=== PATIENT | female | born 1980 | race Caucasian/White ===

== ENCOUNTER 2017-05-15 11:09 | Emergency (ER) | payer BC ==
[2017-05-15 11:17] VITALS: BP 104/70
--- NOTE | 2017-05-15 12:58 | UC ---
Abdominal Pain Female HPI - HPI Summary HPI Summary: right side, lower abdomen and supra pubic pain, no nausea or vomiting no fever , similar past issue with ovarian cyst - History of Current Complaint Chief Complaint: UCAbdominalPain Stated Complaint: PAIN ON SIDE Time Seen by Provider: 05/15/17 12:52 Hx Obtained From: Patient Hx Last Menstrual Period: 04/23/17 ?: No Onset/Duration: Gradual Onset, Lasting Days - 1, Still Present Timing: Constant Severity Initially: Moderate Severity Currently: Moderate Location: Discrete At: RLQ, Suprapubic, Other - right flank Radiates: No Character: Cramping Aggravating Factor(s): Nothing Alleviating Factor(s): Nothing Associated Signs and Symptoms: Positive: Negative Allergies/Adverse Reactions: Allergies Allergy/AdvReac Type Severity Reaction Status Date / Time Penicillins Allergy Severe Hives Verified 09/13/16 07:26 Aspirin Allergy Anaphylatic Verified 09/13/16 07:26 Shock Sulfamethoxazole Allergy temp Verified 05/15/17 11:11 w/Trimethoprim [From Bactrim] PMH/Surg Hx/FS Hx/Imm Hx Previously Healthy: Yes Other History Of: Negative For: Anticoagulant Therapy - Surgical History Surgical History: Yes Surgery Procedure, Year, and Place: TUBAL 2005,EYE MUSCLE AT AGE 3 - Family History Known Family History: Positive: None Family History: no cardiovascular issues reported in family lineage - Social History Occupation: Employed Full-time Lives: With Family Alcohol Use: None Substance Use Type: None Smoking Status (MU): Current Every Day Smoker Type: Cigarettes Amount Used/How Often: 1/2 pack day Review of Systems Constitutional: Negative Skin: Negative Eyes: Negative ENT: Negative Respiratory: Negative Cardiovascular: Negative Gastrointestinal: Abdominal Pain Genitourinary: Negative Motor: Negative Neurovascular: Negative Musculoskeletal: Negative Neurological: Negative Psychological: Negative All Other Systems Reviewed And Are Negative: Yes Physical Exam Triage Information Reviewed: Yes Appearance: Well-Appearing, No Pain Distress, Thin Vital Signs: Initial Vital Signs Temp 98 F 05/15/17 11:12 Pulse 77 05/15/17 11:12 Resp 16 05/15/17 11:12 BP 104/70 05/15/17 11:12 Pulse Ox 99 05/15/17 11:12 Vital Signs Reviewed: Yes Eye Exam: Normal Eyes: Positive: Conjunctiva Clear ENT Exam: Normal ENT: Positive: Normal ENT inspection, Hearing grossly normal, Pharynx normal, TMs normal. Negative: Nasal congestion, Nasal drainage, Tonsillar swelling, Tonsillar exudate, Trismus, Muffled/hoarse voice Neck exam: Normal Neck: Positive: Supple, Nontender, No Lymphadenopathy Respiratory Exam: Normal Respiratory: Positive: Chest non-tender, Lungs clear, Normal breath sounds, No respiratory distress Cardiovascular Exam: Normal Cardiovascular: Positive: RRR, No Murmur, Pulses Normal, Brisk Capillary Refill Abdomen Description: Positive: Soft, Other: - lower abd disusly tender. Negative: CVA Tenderness (L), Distended, Guarding, Hepatomegaly, McBurney's Point Tenderness Bowel Sounds: Positive: Present Musculoskeletal Exam: Normal Musculoskeletal: Positive: Strength Intact, ROM Intact Neurological Exam: Normal Neurological: Positive: Alert, Muscle Tone Normal Psychological Exam: Normal Skin Exam: Normal UC Physical Exam Vital Signs On Initial Exam: Initial Vitals Temp Pulse Resp BP Pulse Ox 98 F 77 16 104/70 99 05/15/17 11:12 05/15/17 11:12 05/15/17 11:12 05/15/17 11:12 05/15/17 11:12 - Genitalia Exam Female Genitourinary: Normal External Exam, Vagina without Blood/Discharge, Left Ovary Tender, Right Ovary Tender, Other - cervical motion tenderness Diagnostics - Laboratory Diagnostic Studies Completed/Ordered: ua wnl except +2 Ketones - Radiology No standard instances Xray Interpretation: Positive (See Comments) - diffuse discomfort-?PID Re-Evaluation - Re-Evaluation First Eval Change: Unchanged - hungry drinking without nausea Abd Pain Female Course/Dx - Course Course Of Treatment: Doxy and flagyl, close follow up with pcp and to ed for additional or unresolving pain or change in sx - Differential Dx/Diagnosis Differential Diagnosis: Appendicitis, Constipation, Diverticulitis, Ovarian Cyst , Pelvic Inflammatory Disease, Renal Colic, Urinary Tract Infection Provider Diagnoses: Abd pain ?PID Discharge - Discharge Plan Condition: Stable Disposition: HOME Prescriptions: DOXYcycline CAP(*) [DOXYcycline 100MG CAP(*)] 100 mg PO BID #28 cap Metronidazole [Flagyl 500 MG TAB] 500 mg PO BID #28 tab Patient Education Materials: Pelvic Inflammatory Disease (ED), Acute Abdominal Pain (ED) Referrals: Jake Luis MD [Primary Care Provider] - 3 Days
--- NOTE | 2017-05-15 14:39 | RAD ---
Indication: Right lower quadrant pain. Real-time sonography of the pelvis was performed utilizing endovaginal technique. The uterus measures 8.8 x 4.3 x 5.0 cm. Endometrial echo measures 9.4 mm. Right ovary measures 3.2 x 2.4 x 2.4 cm. Left ovary measures 2.0 x 1.5 x 1.5 cm. No adnexal masses are noted. Patient experienced pain during scanning especially of the cervix. IMPRESSION: No adnexal masses are noted. The patient experienced cervical pain upon endovaginal scanning.
--- NOTE | 2017-05-18 19:55 | ED ---
Progress - Progress Note Progress Note: CALL PATIENT. NEGATIVE FOR GARDNERELLA AND LANNY. NEGATIVE G/C. FINISH ABX. Re-Evaluation - Re-Evaluation First Eval Change: Unchanged - hungry drinking without nausea Course/Dx - Course Course Of Treatment: Doxy and flagyl, close follow up with pcp and to ed for additional or unresolving pain or change in sx - Diagnoses Provider Diagnoses: STD (female)
== END 2017-05-15 15:37 | disposition home or self-care (01) ==
LOC: UCEAST 11:09
DX: R10.31 Right lower quadrant pain (principal); Z72.0 Tobacco use; Z32.02 Encounter for pregnancy test, result negative
CPT/HCPCS: 76830; 81003; 84702; 87480; 87491; 87510; 87591; 99212; G0463

== ENCOUNTER 2018-02-05 13:00 | Emergency (ER) | payer BC ==
[2018-02-05 13:14] VITALS: BP 119/68
--- NOTE | 2018-02-05 13:44 | RAD ---
INDICATION: Low back pain. COMPARISON: There are no prior studies available for comparison. TECHNIQUE: 3 views of the lumbar spine were obtained including lateral, AP and a coned-down lateral view of the lumbar sacral junction. FINDINGS: There is a mild lumbar scoliosis convex toward the left side. Otherwise in normal alignment. No fracture is seen. There is mild disc space narrowing at the L5-S1 level. IMPRESSION: 1. MILD SCOLIOSIS. 2. MILD DISC SPACE NARROWING L5-S1.
[2018-02-05] MEDS ORDERED: Ketorolac INJ* 60 MG/2 ML VIAL IM ONE (13:51)
--- NOTE | 2018-02-05 15:47 | UC ---
Nahomi Farooq Thomas, scribed for Dixon Kim MD on 02/05/18 at 1323 . Back Pain HPI - HPI Summary HPI Summary: The patient is a 37 year old female who complains of lower back pain since this morning. She arrived to work this morning, and a half hour after that she started to have back pain. The pain is rated 6/10. She denies heavy lifting, trauma, and deformity. She does not have a history of back issues. She was able to ambulate into the examination room. She denies urinary or fecal dysfunction. - History of Current Complaint Chief Complaint: UCBackPain Stated Complaint: BACK PAIN Time Seen by Provider: 02/05/18 13:15 Hx Obtained From: Patient Hx Last Menstrual Period: 01/23/18 Onset/Duration: Lasting Hours, Still Present Timing: Constant Pain Intensity: 6 Pain Scale Used: 0-10 Numeric Alleviating Factor(s): Nothing Associated Signs And Symptoms: Negative: Bladder Incontinence, Bowel Incontinence - Allergies/Home Medications Allergies/Adverse Reactions: Allergies Allergy/AdvReac Type Severity Reaction Status Date / Time aspirin Allergy Severe Anaphylatic Verified 02/05/18 13:14 Shock Penicillins Allergy Severe Hives Verified 02/05/18 13:14 sulfamethoxazole Allergy Intermediate Fever Verified 02/05/18 13:14 [From Bactrim] trimethoprim [From Bactrim] Allergy Intermediate Fever Verified 02/05/18 13:14 levofloxacin [From Levaquin] Allergy See Comment Verified 02/05/18 13:14 Home Medications: Home Medications SUMAtriptan TAB* [Imitrex TAB*] 25 mg PO SEE INSTRUCTIONS 02/05/18 [History Confirmed 02/05/18] PMH/Surg Hx/FS Hx/Imm Hx Previously Healthy: Yes - NEGATIVE: HTN, DM Other History Of: Negative For: Anticoagulant Therapy - Surgical History Surgical History: Yes Surgery Procedure, Year, and Place: TUBAL 2005, EYE MUSCLE AT AGE 3 - Family History Known Family History: Negative: Cardiac Disease - Social History Alcohol Use: None Substance Use Type: None Smoking Status (MU): Light Every Day Tobacco Smoker Type: Cigarettes Amount Used/How Often: 1/2 pack day Review of Systems Constitutional: Negative - fever Gastrointestinal: Negative - fecal incontinence Genitourinary: Negative - bladder incontinence Musculoskeletal: Other: - Back pain Is Patient Immunocompromised?: No All Other Systems Reviewed And Are Negative: Yes Physical Exam - Summary Physical Exam Summary: VITAL SIGNS: Reviewed. GENERAL: Patient is a well-developed and nourished female who is lying comfortable in the stretcher. Patient is not in any acute respiratory distress. HEAD AND FACE: Normocephalic EYES: PERRLA, EOMI x 2. EARS: Hearing grossly intact. MOUTH: Oropharynx within normal limits. NECK: Supple, trachea is midline, no adenopathy, no JVD, no carotid bruit. CHEST: Symmetric, no tenderness at palpation LUNGS: Clear to auscultation bilaterally. No wheezing or crackles. CVS: Regular rate and rhythm, S1 and S2 present, no murmurs or gallops appreciated. ABDOMEN: Soft, non-tender. Bowel sounds are normal. No abdominal abnormal pulsations. BACK: She has paraspinal muscle tenderness in the lumbar spine bilaterally. SLR test is negative. EXTREMITIES: Full ROM in all major joints, no edema, no cyanosis or clubbing. NEURO: Alert and oriented x 3. No acute neurological deficits. Speech is normal and follows commands. SKIN: Dry and warm Triage Information Reviewed: Yes Vital Signs: Initial Vital Signs Temp 98.1 F 02/05/18 13:09 Pulse 86 02/05/18 13:09 Resp 18 02/05/18 13:09 BP 119/68 02/05/18 13:09 Pulse Ox 100 02/05/18 13:09 Vital Signs Reviewed: Yes Diagnostics - Radiology Lumbar Spine XR Xray Interpretation: No Acute Changes - IMPRESSION: 1. MILD SCOLIOSIS. 2. MILD DISC SPACE NARROWING L5-S1. Dr. Kim has reviewed this report. Radiology Interpretation Completed By: Radiologist Back Pain Course/Dx - Course Course Of Treatment: The patient is a 37 year old female who complains of lower back pain since this morning. She arrived to work this morning, and a half hour after that she started to have back pain. She denies heavy lifting, trauma, and deformity. She does not have a history of back issues. She was able to ambulate into the examination room. She denies urinary or fecal dysfunction. Lumbar Spine XR shows 1. Mild scoliosis 2. Mild disc space narrowing L5-S1. The patient is diagnosed with low back strain. The patient is discharged home to follow up with primary care. She was given Toradol at urgent care, and I prescribed her Motrin, Robaxin, and Medrol. I discussed all the findings and test results with the patient. Patient was instructed to return to the urgent care or go to ER immediately if any of the symptoms return or worsen. Plan of care was discussed with the patient, and patient understands and agrees. All questions were answered to patient satisfaction. There were no further complaints or concerns. - Differential Dx/Diagnosis Provider Diagnoses: Low back strain Discharge - Sign-Out/Discharge Documenting (check all that apply): Discharge - Discharge Plan Condition: Stable Disposition: HOME Prescriptions: Ibuprofen TAB* [Motrin TAB* 600 MG] 600 mg PO Q8H PRN #20 tab PRN Reason: Pain Methocarbamol TAB* [Robaxin 500 MG TAB*] 500 mg PO TID PRN #12 tab PRN Reason: Pain methylPREDNISolone [Medrol Dosepak 4 MG*] 0 mg PO .SEE LUZ ELENA INSTRUCTION #1 luz elena Patient Education Materials: Low Back Strain (ED) Forms: *Work Release Referrals: Jake Luis MD [Primary Care Provider] - Additional Instructions: Take medications as instructed Increase your fluid intake Return to the if symptoms worsen RETURN TO URGENT CARE OR THE EMERGENCY DEPARTMENT FOR ANY WORSENING OR NEW SYMPTOMS. The documentation as recorded by the Nahomi rodrigues Thomas accurately reflects the service I personally performed and the decisions made by me, Dixon Kim MD.
== END 2018-02-05 14:00 | disposition home or self-care (01) ==
LOC: UCEAST 13:00
DX: S39.012A Strain of muscle, fascia and tendon of lower back, initial encounter (principal); X58.XXXA Exposure to other specified factors, initial encounter; Y93.9 Activity, unspecified; Y92.9 Unspecified place or not applicable; M41.9 Scoliosis, unspecified; Z88.6 Allergy status to analgesic agent; Z88.1 Allergy status to other antibiotic agents; Z88.0 Allergy status to penicillin; Z88.2 Allergy status to sulfonamides; F17.210 Nicotine dependence, cigarettes, uncomplicated
CPT/HCPCS: 72100; 99212; G0463; J1885

== ENCOUNTER 2019-01-08 21:48 | Emergency (ER) | payer BC ==
[2019-01-08 22:32] LABS: ABS Basophils 0 10^3/ul (0-0.2); ABS Eosinophils 0.1 10^3/ul (0-0.6); ABS Lymphocytes 3.4 10^3/ul (1.0-4.8); ABS Monocytes 0.7 10^3/ul (0-0.8); ABS Neutrophils 4.6 10^3/ul (1.5-7.7); ABS Nucleated RBC 0 10^3/ul; Eosinophil % 0.8 %; Hematocrit 39 % (33-41); Hemoglobin 13.4 g/dL (12.0-16.0); Lymphocyte % 38.4 %; Mean Corpuscular HGB Conc 34 g/dL (31-36); Mean Corpuscular Hemoglobin 34 pg (27-31); Mean Corpuscular Volume 99 fL (80-97); Mean Platelet Volume 9.1 fL (7.4-10.4); Nucleated Red Blood Cells % 0.1; Platelet Count 185 10^3/uL (150-450); Red Blood Count 3.95 10^6 /uL (3.70-4.87); Red Cell Distribution Width 13 % (10.5-15); White Blood Count 8.8 10^3/uL (3.5-10.8)
[2019-01-08] MEDS ORDERED: Morphine 4 MG/ML VIAL (1 ml) 4 MG/ML VIAL IV ONE (22:42)
[2019-01-08] MEDS ORDERED: NS 0.9% 1000 ML** 2,000 ML IV ONE (22:42)
[2019-01-08] MEDS ORDERED: Ondansetron INJ* 2 MG/ML VIAL IV ONE (22:48)
[2019-01-08 22:50] LABS: ALT 7 U/L (7-52); AST 13 U/L (13-39); Albumin 4.1 g/dL (3.2-5.2); Albumin/Globulin Ratio 1.7 (1-3); Alkaline Phosphatase 53 U/L (34-104); Anion Gap 5 mmol/L (2-11); Blood Urea Nitrogen 11 mg/dL (6-24); CO2 Carbon Dioxide 28 mmol/L (22-32); Calcium 9.1 mg/dL (8.6-10.3); Chloride 104 mmol/L (101-111); EGFR African American 131.4 (>60); EGFR Non-African American 108.6 (>60); Globulin 2.4 g/dL (2-4); Glucose 93 mg/dL (70-100); Sodium 137 mmol/L (135-145); Total Protein 6.5 g/dL (6.4-8.9)
--- NOTE | 2019-01-08 22:53 | ED ---
Abdominal Pain/Female - HPI Summary HPI Summary: This patient is a 38 year old F presenting to [facility] with a chief complaint of progressively worsening RLQ pain since yesterday morning with nausea this evening. Patient reports decreased appetite due to nausea. Patient denies diarrhea, vomiting, urinary symptoms, and chest pain. Pain rated 8/10 upon triage. Nothing relieves the pain. Pain worsened by movement especially during the car ride to hospital. Allergies reviewed including penicillin, Bactrim, and Levaquin. - History of Current Complaint Chief Complaint: EDAbdPain Stated Complaint: "RT SIDED ABD PAIN" Time Seen by Provider: 01/08/19 22:33 Hx Obtained From: Patient Hx Last Menstrual Period: 01/23/18 Onset/Duration: Gradual Onset, Lasting Days Timing: Constant Severity Initially: Mild Severity Currently: Severe Pain Intensity: 8 Pain Scale Used: 0-10 Numeric Location: Discrete At: RLQ Radiates: No Aggravating Factor(s): Movement Alleviating Factor(s): Nothing Associated Signs and Symptoms: Positive: Nausea. Negative: Fever, Chest Pain, Urinary Symptoms, Vomiting, Diarrhea Allergies/Adverse Reactions: Allergies Allergy/AdvReac Type Severity Reaction Status Date / Time aspirin Allergy Severe Anaphylatic Verified 01/08/19 21:58 Shock Penicillins Allergy Severe Hives Verified 01/08/19 21:58 sulfamethoxazole Allergy Intermediate Fever Verified 01/08/19 21:58 [From Bactrim] trimethoprim [From Bactrim] Allergy Intermediate Fever Verified 01/08/19 21:58 levofloxacin [From Levaquin] Allergy See Comment Verified 01/08/19 21:58 PMH/Surg Hx/FS Hx/Imm Hx Endocrine/Hematology History: Reports: Hx Unexplained Bleeding - gums bleed w/ brushing teeth, heavier menstrual cycles x 4 mons; cuts bleed Denies: Hx Anticoagulant Therapy, Hx Blood Disorders, Hx Diabetes, Hx Thyroid Disease Cardiovascular History: Denies: Hx Hypertension, Hx Pacemaker/ICD Respiratory History: Denies: Hx Asthma, Hx Chronic Obstructive Pulmonary Disease (COPD), Hx Pulmonary Embolism GI History: Denies: Hx Ulcer History: Denies: Hx Renal Disease Sensory History: Denies: Hx Hearing Aid Neurological History: Reports: 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 Psychiatric History: Denies: Hx Eating Disorder, Hx Panic Disorder, Hx of Violent Episodes Against Others - Surgical History Surgery Procedure, Year, and Place: TUBAL 2005, EYE MUSCLE AT AGE 3 Infectious Disease History: No Infectious Disease History: Denies: Hx Clostridium Difficile, Hx Hepatitis, Hx Human Immunodeficiency Virus (HIV), Hx of Known/Suspected MRSA, Hx Shingles, Hx Tuberculosis, Hx Known/ Suspected VRE, Hx Known/Suspected VRSA, History Other Infectious Disease, Traveled Outside the [place] in Last 30 Days - Family History Known Family History: Negative: Cardiac Disease Family History: no cardiovascular issues reported in family lineage - Social History Alcohol Use: None Hx Substance Use: No Substance Use Type: Reports: None Hx Tobacco Use: Yes Smoking Status (MU): Light Every Day Tobacco Smoker Type: Cigarettes Amount Used/How Often: 1/2 pack day Review of Systems Negative: Fever Negative: Chest Pain Positive: Abdominal Pain, Nausea. Negative: Vomiting, Diarrhea Positive: no symptoms reported All Other Systems Reviewed And Are Negative: Yes Physical Exam - Summary Physical Exam Summary: Appearance: Well-appearing, Well-nourished, lying in bed comfortably Skin: Warm, dry, no obvious rash Eyes: sclera anicteric, no conjunctival pallor ENT: mucous membranes moist, pharynx appears normal Neck: Supple, nontender Respiratory: Clear to auscultation, no signs of respiratory distress Cardiovascular: Normal S1, S2. No murmurs. Normal distal pulses in tibial and radial bilaterally. Abdomen: Soft, normal active bowel sounds present Musculoskeletal: Normal, Strength/ROM Intact, Sevre RLQ tenderness with guarding and rebound Neurological: A&Ox3, awake and alert, mentation is normal, speech is fluent and appropriate Psychiatric: affect is normal, does not appear anxious or depressed Triage Information Reviewed: Yes Vital Signs On Initial Exam: Initial Vitals Temp Pulse Resp BP Pulse Ox 98.4 F 77 16 119/85 99 01/08/19 21:56 01/08/19 21:56 01/08/19 21:56 01/08/19 21:56 01/08/19 21:56 Vital Signs Reviewed: Yes Diagnostics - Vital Signs Vital Signs Temp Pulse Resp BP Pulse Ox 01/08/19 21:56 98.4 F 77 16 119/85 99 - Laboratory Lab Results: Lab Results 01/08/19 Range/Units 22:26 WBC 8.8 (3.5-10.8) 10^3/uL RBC 3.95 (3.70-4.87) 10^6 /uL Hgb 13.4 (12.0-16.0) g/dL Hct 39 (33-41) % MCV 99 H (80-97) fL MCH 34 H (27-31) pg MCHC 34 (31-36) g/dL RDW 13 (10.5-15) % Plt Count 185 (150-450) 10^3/uL MPV 9.1 (7.4-10.4) fL Neut % (Auto) 52.3 % Lymph % (Auto) 38.4 % [place] % (Auto) 8.0 % Eos % (Auto) 0.8 % Baso % (Auto) 0.5 % Absolute Neuts (auto) 4.6 (1.5-7.7) 10^3/ul Absolute Lymphs (auto) 3.4 (1.0-4.8) 10^3/ul Absolute Monos (auto) 0.7 (0-0.8) 10^3/ul Absolute Eos (auto) 0.1 (0-0.6) 10^3/ul Absolute Basos (auto) 0 (0-0.2) 10^3/ul Absolute Nucleated RBC 0 10^3/ul Nucleated RBC % 0.1 Result Diagrams: 01/08/19 22:26 01/08/19 22:26 Lab Statement: Any lab studies that have been ordered have been reviewed, and results considered in the medical decision making process. - CT CT A/P CT Interpretation Completed By: Radiologist Summary of CT Findings: No CT findings to correlate with patient's symptomatology. Specifically no. appendicitis. ED Physician has reviewed this report. Re-Evaluation - Re-Evaluation 1 Re-Evaluation Time: 02:00 Change: Improved - Pain is improved. Abdominal Pain Fem Course/Dx - Course Course Of Treatment: 38 year old F presenting with progressively worsening RLQ pain since yesterday morning with nausea this evening. Bloodwork and UA is obtained without significant abnormalities. Patient is given 8mg of Zofran and 4mg of Morphine. CT scan fails to see any sign of appendicitis, a normal appendix is seen. There are no abnormalities of the pelvic organs either. Pain is better and pt wishes to go home. I discussed with her that we still do not have a diagnosis for her pain and ultrasound may be necessary. She would like to go home and return for an US if necessary. I will give her a few percocet, keep to liquid diet for now, return prn. - Diagnoses Provider Diagnoses: Acute abdominal pain in right lower quadrant Discharge - Sign-Out/Discharge Documenting (check all that apply): Patient Departure - discharge Patient Received Moderate/Deep Sedation with Procedure: No - Discharge Plan Condition: Improved Disposition: HOME Patient Education Materials: Acute Abdominal Pain (ED) Referrals: Concepcion Carrero MD [Primary Care Provider] - Additional Instructions: If your symptoms recur and/or worsen, we would like to see you back here for further testing. Sometimes an ultrasound study can find things a CT scan cannot , in particular problems of the uterus and ovaries. We have ultrasound available during the day until 10 pm. - Billing Disposition and Condition Condition: IMPROVED Disposition: Home - Attestation Statements Document Initiated by Gaston: Yes Documenting Scribe: Elayne Vazquez Provider For Whom Gaston is Documenting (Include Credential): Álvaro Boland MD Scribe Attestation: I, Elayne Vazquez, scribed for Álvaro Boland MD on 01/12/19 at 1837. Scribe Documentation Reviewed: Yes Provider Attestation: The documentation as recorded by the Elayne rodrigues accurately reflects the service I personally performed and the decisions made by me, Álvaro Boland MD Status of Scribe Document: Viewed
[2019-01-08 22:56] LABS: HCG Pregnancy < 0.60 mIU/mL
[2019-01-09 00:25] LABS: Urine Appearance Clear; Urine Bilirubin Negative (Negative); Urine Blood Negative (Negative); Urine Color Straw; Urine Glucose Negative (Negative); Urine Ketones Trace (Negative); Urine Nitrite Negative (Negative); Urine Protein Negative (Negative); Urine Specific Gravity 1.005 (1.010-1.030); Urine Urobilinogen Negative (Negative)
[2019-01-09] MEDS ORDERED: Iohexol 300* (CONTRAST) 10 ML SDV IV ONE (00:44)
[2019-01-09] MEDS ORDERED: Morphine 4 MG/ML VIAL (1 ml) 4 MG/ML VIAL IV PRN (01:00)
[2019-01-09 02:33] VITALS: BP 96/63
== END 2019-01-09 02:59 | disposition home or self-care (01) ==
LOC: ED 21:48
DX: R10.31 Right lower quadrant pain (principal); R11.0 Nausea; Z88.6 Allergy status to analgesic agent; Z88.1 Allergy status to other antibiotic agents; Z88.0 Allergy status to penicillin; Z88.2 Allergy status to sulfonamides; F17.210 Nicotine dependence, cigarettes, uncomplicated
CPT/HCPCS: 36415; 74177; 80053; 80164; 81003; 83690; 84702; 85025; 96361; 96374; 96375; 96376; 99283; J2270; J2405; Q9967

== ENCOUNTER 2019-09-01 22:39 | Emergency (ER) | payer BC ==
--- NOTE | 2019-09-02 00:13 | ED ---
Complex/Multi-Sys Presentation - HPI Summary HPI Summary: Patient is a 39 y/o F presenting to [facility] with complaints of diffuse myalgia and DENSON. Patient reports that these Sx onset 08/29/19. Patient was evaluated 09/01/19 by a medical provider. [place] test was done and negative. Afterwards, patient states that she experienced an exacerbation of her Sx, which led to this current ED visit. Chills, decreased appetite, and fatigue are endorsed but fever, rash, N/V/D are denied. She notes that she had cold Sx last week and notes continued cough. PMHx of seizures is noted. On triage, pain is rated 10/10, nothing is noted to aggravate/alleviate Sx. Home medications and allergies are reviewed. - History Of Current Complaint Chief Complaint: EDGeneral Time Seen by Provider: 09/01/19 23:56 Hx Obtained From: Patient Onset/Duration: Lasting Days, Still Present, Worse Since Timing: Constant, Days Severity Currently: Severe Location: Pain At: - head, diffuse body aches Aggravating Factor(s): nothing Alleviating Factor(s): nothing Associated Signs And Symptoms: Positive: Headache, Cough, Other - positive - diffuse myalgia, chills, decreased appetite, fatigue; negative - rash. Negative : Nausea, Vomiting, Diarrhea, Fever - Allergies/Home Medications Allergies/Adverse Reactions: Allergies Allergy/AdvReac Type Severity Reaction Status Date / Time aspirin Allergy Severe Anaphylatic Verified 01/08/19 21:58 Shock Penicillins Allergy Severe Hives Verified 01/08/19 21:58 sulfamethoxazole Allergy Intermediate Fever Verified 01/08/19 21:58 [From Bactrim] trimethoprim [From Bactrim] Allergy Intermediate Fever Verified 01/08/19 21:58 levofloxacin [From Levaquin] Allergy See Comment Verified 01/08/19 21:58 Home Medications: Home Medications levETIRAcetam [Levetiracetam] 500 mg PO BID 09/02/19 [History Confirmed 09/02/19 ] PMH/Surg Hx/FS Hx/Imm Hx Endocrine/Hematology History: Reports: Hx Unexplained Bleeding - gums bleed w/ brushing teeth, heavier menstrual cycles x 4 mons; cuts bleed Denies: Hx Anticoagulant Therapy, Hx Blood Disorders, Hx Diabetes, Hx Thyroid Disease Cardiovascular History: Denies: Hx Hypertension, Hx Pacemaker/ICD Respiratory History: Denies: Hx Asthma, Hx Chronic Obstructive Pulmonary Disease (COPD), Hx Pulmonary Embolism GI History: Denies: Hx Ulcer History: Denies: Hx Renal Disease Sensory History: Denies: Hx Hearing Aid Neurological History: Reports: 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 Psychiatric History: Denies: Hx Eating Disorder, Hx Panic Disorder, Hx of Violent Episodes Against Others - Surgical History Surgery Procedure, Year, and Place: TUBAL 2005, EYE MUSCLE AT AGE 3 Infectious Disease History: No Infectious Disease History: Denies: Hx Clostridium Difficile, Hx Hepatitis, Hx Human Immunodeficiency Virus (HIV), Hx of Known/Suspected MRSA, Hx Shingles, Hx Tuberculosis, Hx Known/ Suspected VRE, Hx Known/Suspected VRSA, History Other Infectious Disease, Traveled Outside the [place] in Last 30 Days - Family History Known Family History: Negative: Cardiac Disease Family History: no cardiovascular issues reported in family lineage - Social History Alcohol Use: None Hx Substance Use: No Substance Use Type: Reports: None Hx Tobacco Use: Yes Smoking Status (MU): Light Every Day Tobacco Smoker Type: Cigarettes Amount Used/How Often: 1/2 pack day Review of Systems Positive: Chills, Fatigue. Negative: Fever Positive: Cough Gastrointestinal: Other - positive - decreased appetite Negative: Vomiting, Diarrhea, Nausea Positive: Myalgia - diffuse Negative: Rash Positive: Headache All Other Systems Reviewed And Are Negative: Yes Physical Exam - Summary Physical Exam Summary: Appearance: Well-appearing, Well-nourished, lying in bed comfortably Skin: Warm, dry, no obvious rash Eyes: sclera anicteric, no conjunctival pallor ENT: mucous membranes moist, pharynx appears normal Neck: Supple, nontender Respiratory: Clear to auscultation, no signs of respiratory distress Cardiovascular: Normal S1, S2. No murmurs. Normal distal pulses in tibial and radial bilaterally. Abdomen: Soft, nontender, normal active bowel sounds present Musculoskeletal: Normal, Strength/ROM Intact Neurological: A&Ox3, awake and alert, mentation is normal, speech is fluent and appropriate Psychiatric: affect is normal, does not appear anxious or depressed Triage Information Reviewed: Yes Vital Signs On Initial Exam: Initial Vitals Temp Pulse Resp BP Pulse Ox 97.2 F 111 20 139/85 98 09/01/19 22:41 09/01/19 22:41 09/01/19 22:41 09/01/19 22:41 09/01/19 22:41 Vital Signs Reviewed: Yes Procedures - Sedation Patient Received Moderate/Deep Sedation with Procedure: No Diagnostics - Vital Signs Vital Signs Temp Pulse Resp BP Pulse Ox 09/01/19 22:41 97.2 F 111 20 139/85 98 - Laboratory Result Diagrams: 09/02/19 00:21 09/02/19 00:21 Lab Statement: Any lab studies that have been ordered have been reviewed, and results considered in the medical decision making process. - Radiology CXR Radiology Interpretation Completed By: ED Physician Summary of Radiographic Findings: No acute process, pending official report. Complex Multi-Symp Course/Dx Course Of Treatment: Patient is a 39 y/o F presenting to [facility] with complaints of diffuse myalgia and DENSON. Patient reports that these Sx onset 08/29/19. Patient was evaluated 09/01/19 by a medical provider. [place] test was done and negative. Afterwards, patient states that she experienced an exacerbation of her Sx, which led to this current ED visit. Chills, decreased appetite, and fatigue are endorsed but fever, rash, N/V/D are denied. She notes that she had cold Sx last week and notes continued cough. Physical exam is unremarkable. Bloodwork was obtained and WNL with exception of MCV 98 and MCH 34. CXR showed no acute process. Patient was discharged to home and will follow up with PCP within four days if Sx are not improving. - Diagnoses Provider Diagnoses: Myalgia, Viral syndrome Discharge ED - Sign-Out/Discharge Documenting (check all that apply): Patient Departure - discharge - Discharge Plan Condition: Good Disposition: HOME Patient Education Materials: Musculoskeletal Pain (ED) Forms: *Work Release Referrals: Concepcion Carrero MD [Primary Care Provider] - 4 Days (if not improving) - Billing Disposition and Condition Condition: GOOD Disposition: Home - Attestation Statements Document Initiated by Gaston: Yes Documenting [place]: LIZ TRIPATHI Provider For Whom Gaston is Documenting (Include Credential): ANUSHA WOODS MD Scribe Attestation: LIZ Farooq scribed for ANUSHA WOODS MD on 09/02/19 at 1850. Scribe Documentation Reviewed: Yes Provider Attestation: The documentation as recorded by the LIZ rodrigues accurately reflects the service I personally performed and the decisions made by me, ANUSHA WOODS MD Status of Scribe Document: Viewed
[2019-09-02 00:31] LABS: ABS Eosinophils 0.1 10^3/ul (0-0.6); ABS Lymphocytes 2.8 10^3/ul (1.0-4.8); ABS Monocytes 0.6 10^3/ul (0-0.8); ABS Neutrophils 2.9 10^3/ul (1.5-7.7); Eosinophil % 1.2 %; Hematocrit 39 % (35-47); Hemoglobin 13.4 g/dL (12.0-16.0); Lymphocyte % 43.9 %; Mean Corpuscular HGB Conc 34 g/dL (31-36); Mean Corpuscular Hemoglobin 34 pg (27-31); Mean Corpuscular Volume 98 fL (80-97); Mean Platelet Volume 8.6 fL (7.4-10.4); Nucleated Red Blood Cells % 0.1; Platelet Count 221 10^3/uL (150-450); Red Blood Count 3.99 10^6 /uL (3.70-4.87); Red Cell Distribution Width 13 % (10-15); White Blood Count 6.4 10^3/uL (3.5-10.8)
[2019-09-02 00:46] LABS: ALT 9 U/L (7-52); AST 13 U/L (13-39); Albumin 4.1 g/dL (3.2-5.2); Albumin/Globulin Ratio 1.6 (1-3); Alkaline Phosphatase 63 U/L (34-104); Anion Gap 4 mmol/L (2-11); Blood Urea Nitrogen 11 mg/dL (6-24); C Reactive Protein < 1.00 mg/L (<8.01); CO2 Carbon Dioxide 28 mmol/L (22-32); Calcium 9.3 mg/dL (8.6-10.3); Chloride 105 mmol/L (101-111); Creatine Kinase 27 U/L (10-223); EGFR African American 130.8 (>60); EGFR Non-African American 108.1 (>60); Globulin 2.5 g/dL (2-4); Glucose 89 mg/dL (70-100); Potassium 3.8 mmol/L (3.5-5.0); Sodium 137 mmol/L (135-145); Total Protein 6.6 g/dL (6.4-8.9)
[2019-09-02 01:46] VITALS: BP 102/84
== END 2019-09-02 01:43 | disposition home or self-care (01) ==
LOC: ED 22:39
DX: B34.9 Viral infection, unspecified (principal); M79.10 Myalgia, unspecified site; G40.A09 Absence epileptic syndrome, not intractable, without status epilepticus; Z88.6 Allergy status to analgesic agent; Z88.1 Allergy status to other antibiotic agents; Z88.0 Allergy status to penicillin; Z88.2 Allergy status to sulfonamides; F17.210 Nicotine dependence, cigarettes, uncomplicated
CPT/HCPCS: 36415; 71046; 80053; 82550; 83605; 85025; 86140; 99283